=== PATIENT | male | born 1960 | race African-American/Black ===

== ENCOUNTER 2024-05-28 08:42 | Emergency (ER) | payer MEDICAID ==
[~2024-05-28] VITALS: Ht 185.4 cm; Wt 100.0 kg
[2024-05-28 08:45] VITALS: BP 144/92; RESP 16; TEMP 98.6; O2SAT 97
[2024-05-28 08:47] VITALS: PULSE 75; O2SAT 98
[2024-05-28] MEDS ORDERED: INSU100I28 SQ (09:17)
[2024-05-28] MEDS ORDERED: BLOO-1465 MT (09:17)
[2024-05-28] MEDS ORDERED: INSU100C6 SQ (09:17)
[2024-05-28] MEDS ORDERED: SYRI-219 SQ (09:17)
== END 2024-05-28 09:31 | disposition home or self-care (01) ==
LOC: ER 08:42
DX: Z76.0 Encounter for issue of repeat prescription (principal); E11.9 Type 2 diabetes mellitus without complications; Z88.8 Allergy status to other drugs, medicaments and biological substances
CPT/HCPCS: 99281